=== PATIENT | female | born 1995 | race Two or more races ===

== ENCOUNTER 2022-11-14 12:57 | Emergency (ER) | payer OTHER ==
[~2022-11-14] VITALS: Ht 172.7 cm; Wt 68.0 kg
[2022-11-14] MEDS ORDERED: DICLOFENAC SODI75 MG PO (17:33)
[2022-11-14] MEDS ORDERED: BUTALBIT-ACETA1 EACH PO (17:33)
== END 2022-11-14 17:46 | disposition home or self-care (01) ==
LOC: ER 12:57
DX: R51.9 Headache, unspecified (principal)

== ENCOUNTER 2023-04-07 10:17 | Emergency (ER) | payer OTHER ==
[~2023-04-07] VITALS: Ht 172.7 cm; Wt 65.8 kg
[~2023-04-07 10:17] MED LIST: BUTALBIT-ACETA1 EACH PO; DICLOFENAC SODI75 MG PO
[2023-04-07] MEDS ORDERED: ANTICONCEPTIVOS (10:32)
[2023-04-07 11:26] LABS: HEMATOCRIT 38.9 % (36.0-45.00); MEAN CELL VOLUME 89.2 fL (80.00-100.00); MEAN CORPUSCULAR HEMOGLOBIN 29.9 pg (27.00-32.0); MEAN CORPUSCULAR HGB CONC 33.5 g/dl (32.0-36.0); PLATELET COUNT 285 K/uL (150-450); RED BLOOD COUNT 4.36 M/uL (4.00-6.00); RED CELL DISTRIBUTION WIDTH 12.6 % (11.5-14.5)
[2023-04-07 11:52] LABS: ALBUMIN 3.3 gm/dL (3.4-5.0); BILIRUBIN TOTAL 0.44 mg/dL (0.3-1.2); BILIRUBIN,CONJUGATED 0.14 mg/dL (0.0-0.2); BILIRUBIN,UNCONJUGATED 0.3 mg/dL (0.0-0.6); CALCIUM 9.4 mg/dL (8.5-10.1); CREATININE SERUM 0.95 mg/dL (0.55-1.02); GFR 70.56; GLOBULINA 4.3 G/DL (2.4-3.5); POTASSIUM 4.36 mEq/L (3.5-5.1); TOTAL PROTEIN 7.6 gm/dL (6.4-8.2)
[2023-04-07 12:09] LABS: PH,URINE 6.5 (5.0-8.0); URINE APPEARANCE Clear; URINE BILIRRUBIN Negative (NEGATIVE); URINE BLOOD NHT; URINE COLOR Yellow; URINE GLUCOSE Negative (NEGATIVE); URINE LEUKOCYTE Negative; URINE NITRATE Negative; URINE PROTEIN Negative (NEGATIVE); URINE UROBILINOGEN 0.2 E.U./dl
[2023-04-07 12:20] LABS: URINE BACTERIA 85.6 uL (0.0-1933); URINE EPITHELIAL CELLS 17.7 uL (0.0-38.8); URINE RBC 5.1 uL (0.0-20.8); URINE WBC 8.8 uL (0.0-23.2)
[2023-04-07] MEDS ORDERED: PEPCID20 MG PO (14:10)
[2023-04-07] MEDS ORDERED: NAPROXEN500 MG PO (14:10)
== END 2023-04-07 14:30 | disposition home or self-care (01) ==
LOC: ER 10:17
PROVIDERS: General Practice
DX: R10.84 Generalized abdominal pain (principal); R51.9 Headache, unspecified

== ENCOUNTER 2024-01-27 10:37 | Emergency (ER) | payer OTHER ==
[~2024-01-27] VITALS: Ht 172.7 cm; Wt 65.8 kg
[~2024-01-27 10:37] MED LIST changes: +ANTICONCEPTIVOS; +NAPROXEN500 MG PO; +PEPCID20 MG PO
[2024-01-27] MEDS ORDERED: FAMOTIDINE/PF 20 MG/2 ML VIAL IV PUSH ONE (12:15)
[2024-01-27] MEDS ORDERED: HYOSCYAMINE SULFATE 0.125 MG TAB.SUBL SL ONE (12:15)
[2024-01-27] MEDS ORDERED: 0.9 % SODIUM CHLORIDE 500 ML IV SCH (12:15)
[2024-01-27] MEDS ORDERED: MAG HYDROX/ALUMINUM HYD/SIMETH 30 ML BLIST.PACK PO ONE ×2 (12:26→12:30)
[2024-01-27] MEDS ORDERED: FAMOTIDINE/PF 20 MG/2 ML VIAL ONE (12:27)
[2024-01-27] MEDS ORDERED: HYOSCYAMINE SULFATE 0.125 MG TAB.SUBL ONE (12:27)
[2024-01-27 13:26] LABS: HEMATOCRIT 42.7 % (36.0-45.00); HEMOGLOBIN 14.7 g/dL (12.0-15.00); MEAN CELL VOLUME 90.7 fL (80.00-100.00); MEAN CORPUSCULAR HEMOGLOBIN 31.2 pg (27.00-32.0); MEAN CORPUSCULAR HGB CONC 34.4 g/dl (32.0-36.0); PLATELET COUNT 320 K/uL (150-450); RED BLOOD COUNT 4.71 M/uL (4.00-6.00); RED CELL DISTRIBUTION WIDTH 13.3 % (11.5-14.5)
[2024-01-27 15:02] LABS: CALCIUM 9.1 mg/dL (8.5-10.1); CREATININE SERUM 0.76 mg/dL (0.55-1.02); GFR 90.62; POTASSIUM 3.76 mEq/L (3.5-5.1)
== END 2024-01-27 16:52 | disposition home or self-care (01) ==
LOC: ER 10:39
PROVIDERS: Emergency Medicine
DX: K52.9 Noninfective gastroenteritis and colitis, unspecified (principal); M06.9 Rheumatoid arthritis, unspecified; Z20.822 Contact with and (suspected) exposure to COVID-19